=== PATIENT | female | born 1960 | race Caucasian/White ===

== ENCOUNTER 2018-04-09 10:38 | Inpatient (IN) | payer OTHER ==
[~2018-04-09] VITALS: Ht 157.5 cm; Wt 65.8 kg
[2018-04-09] MEDS ORDERED: PREG50CA PO (10:47)
--- NOTE | 2018-04-09 11:00 | NUR ---
PT CAME IN FOR SEVERE HEADACHE. SEEN BY FOR EVAL. VSS. WILL MONITOR.
[2018-04-09] MEDS ORDERED: MORPHINE SULFATE INJ 4 MG/ML DISP.SYRIN ONE (11:08)
[2018-04-09] MEDS ORDERED: ONDANSETRON HCL/PF 4 MG/2 ML VIAL ONE (11:08)
[2018-04-09 11:17] LABS: BASOPHILS % (AUTO) 0.3 % (0.0-2.0); EOSINOPHILS % (AUTO) 0.2 % (0.0-6.0); HEMATOCRIT 39 % (33-45); HEMOGLOBIN 13.2 g/dL (11.5-14.8); LYMPHOCYTES # (AUTO) 0.8 /CMM (0.8-4.8); LYMPHOCYTES % (AUTO) 11.9 % (20.0-44.0); MEAN CORPUSCULAR HGB CONC 34 g/dl (31.0-36.0); MEAN CORPUSCULAR VOLUME 88 fL (82-100); MONOCYTES # (AUTO) 0.2 /CMM (0.1-1.30); MONOCYTES % (AUTO) 3.6 % (2.0-12.0); NEUTROPHILS # (AUTO) 5.8 /CMM (1.8-8.9); PLATELET COUNT (AUTO) 313 /CMM (150-450); RDW COEFFICIENT OF VARIATION 12.6 (11.5-15.0); RED BLOOD CELL COUNT(AUTO) 4.44 MIL/uL (4.0-5.2); WHITE BLOOD COUNT (AUTO) 6.9 K/uL (4.3-11.0)
[2018-04-09 11:26] LABS: CALCIUM, SERUM 8.6 mg/dL (8.5-10.1); CREATININE 0.8 mg/dL (0.6-1.3); POTASSIUM 4.1 mmol/L (3.5-5.1)
[2018-04-09 11:28] LABS: INR 0.9 (0.85-1.15)
[2018-04-09] MEDS ORDERED: IV NS 0.9% 1,000 ML BAG IV ONE ×2 (11:30→13:30)
[2018-04-09] MEDS ORDERED: ONDANSETRON HCL/PF - ER 4 MG/2 ML VIAL IV ONE (11:30)
[2018-04-09] MEDS ORDERED: MORPHINE SULFATE INJ 2 MG/ML DISP.SYRIN IV ONE (11:30)
--- NOTE | 2018-04-09 11:40 | NUR ---
IV ACCESS STARTED. BLOOD DRAWN FOR LABS. MEDICATED ORDERED,
[2018-04-09] MEDS ORDERED: SUMATRIPTAN SUCCINATE 25 MG TABLET ONE ×2 (11:52→13:40)
[2018-04-09] MEDS ORDERED: SUMATRIPTAN SUCCINATE 25 MG TABLET PO ONE (12:00)
[2018-04-09] MEDS ORDERED: SUMATRIPTAN SUCCINATE 6 MG/0.5 ML VIAL SQ ONE (13:30)
[2018-04-09] MEDS ORDERED: HYDR12.55 PO (15:28)
[2018-04-09] MEDS ORDERED: PREG75CA PO (15:28)
[2018-04-09] MEDS ORDERED: diphenhydrAMINE HCL 50 MG/ML VIAL IV ONE (15:30)
[2018-04-09] MEDS ORDERED: diphenhydrAMINE HCL 50 MG/ML VIAL ONE (15:41)
--- NOTE | 2018-04-09 16:15 | NUR ---
CALLED [employer] SPECIALIST WAS PAGED.
[2018-04-09] MEDS ORDERED: KETOROLAC TROMETHAMINE INJ 30 MG/ML VIAL IV ONE (17:00)
--- NOTE | 2018-04-09 17:10 | NUR ---
CALL RECEIVED FROM DR KATHERIN CHAHAL, WANTS PATIENT KEPT IN ER UNTIL MRI IS DONE AND RESULT CALLED TO [facility] PANEL.DR CORMIER INFORMED AND SAID THAT [facility] WILL MANAGE AND DISCHARGE PATIENTS.
[2018-04-09] MEDS ORDERED: METOCLOPRAMIDE HCL 10 MG/2 ML VIAL IV ONE (17:30)
--- NOTE | 2018-04-09 19:00 | NUR ---
PT TAKEN TO MRI. CHECKLIST DONE.
--- NOTE | 2018-04-09 19:39 | NUR ---
PT BACK FROM MRI IN STABLE CONDITION
--- NOTE | 2018-04-09 20:46 | NUR ---
MS RN NOTES RECEIVED REPORT FROM [facility] NURSE REGARDING THIS PATIENT GOING TO 205 BED 2,BUT HE WAS INFORMED THAT 205 IS BEING CLEAN AND WAX BY [facility] PEOPLE,INSTEAD,.PATIENT WILL GO TO 204 BED 1.
--- NOTE | 2018-04-09 20:51 | NUR ---
REPORT GIVEN TO JUANA
[2018-04-09 21:00] VITALS: BP 127/66
--- NOTE | 2018-04-09 21:00 | NUR ---
MS RN NOTES PATIENT CAME VIA WHEELCHAIR ACCOMPANIED BY DAUGHTER,PLACE ON BED IN STABLE,COMFORTABLE CONDITION.
[2018-04-09 21:30] VITALS: BP 127/66
--- NOTE | 2018-04-09 21:58 | NUR ---
MS RN NOTES ALMOST AN HOUR,NO ADMITTING ORDERS YET,DECIDED TO SENT MESSAGE TO [facility] TAKER [facility] [employer] FOR TONIGHT,AWAITING FOR AN ANSWER.
--- NOTE | 2018-04-09 22:15 | NUR ---
MS RN NOTES AT THIS TIME KATHERIN DE LEON DNP CALLED ASKING,"WHOSE IN CHARGE OF THIS PATIENT,ALEXSANDER FLORES" AND I SAID "I AM DOCTOR ",FREDY HE SAID,CALL ER TO GET PATIENT OUT THERE AND BRING HER BACK TO ER,SHE'S NOT ADMITTED,I ALREADY TOLD THEM,IM NOT ADMITTING THE PATIENT,[facility] WILL NOT PUT ORDERS EITHER.AT THIS POINT,I CALLED THE NURSING CORN SHREDDER REGARDING THE SITUATION AND SHE SAID SHE WILL CALL GRACE,DIRECTOR CLINICAL OPERATIONS,FOR FURTHER SOLUTION ON THIS SITUATION.
--- NOTE | 2018-04-09 22:20 | NUR ---
MS RN NOTES SPOKE TO GATO LYLES IN ER REGARDING DR KATHERIN DE LEON'S DIRECTIVE,BUT HE SAID HE WILL CALL GRACE FIRST.
--- NOTE | 2018-04-09 22:30 | NUR ---
MS RN NOTES GUSTAVO SILVEIRA ACNP CAME BY AND SEE PATIENT,EXPLAINED THE SITUATION IN [place] TO THE PATIENT.
--- NOTE | 2018-04-09 22:40 | NUR ---
MS RN NOTES MADE PHONE CALL TO JAYESH,DAUGHTER THAT HER MOM WILL GOING HOME TONIGHT,THAT HER MOM WILL BE IN ER FOR [employer]PERVISOR..SHE SAID OK, 'ILL PICK HER UP IN 35 MINUTES.
--- NOTE | 2018-04-09 22:45 | NUR ---
MS RN NOTES NURSING HEAD OF [employer] CALLED TO BRING THE PATIENT BACK TO ER PER GRACE DIRECTIVE AT THIS TIME.
--- NOTE | 2018-04-09 22:50 | NUR ---
MS RN NOTES PATIENT WAS CHANGED TO [employer] AND BROUGHT TO ER VIA WHEELCHAIR BY ZACHARIAH BINGHAM.SALINE LOCK WAS REMOVED ALONG WITH THE NAME BAND.PATIENT WAS PLACE IN ROOM 3 AT EMERGENCY ROOM.
== END 2018-04-09 22:50 | disposition home or self-care (01) | DRG 54 ==
LOC: ER 10:40 → UNDOADMIN 17:03 → MEDSG2 17:03
PROVIDERS: ADMIT Registered Nurse; ATTEND Registered Nurse
DX: G43.919 Migraine, unspecified, intractable, without status migrainosus (principal)
CPT/HCPCS: 36415; 70450-TC; 70551-TC; 80048-TC; 85025-TC; 85610-TC; 85652-TC; 87081-TC; A4606; J1200; J1885; J2270; J2405; J2765; J7030; Z7610